=== PATIENT | male | born 1970 | race African-American/Black ===

== ENCOUNTER 2024-05-30 17:27 | Emergency (ER) | payer MEDICAID, OTHER ==
[~2024-05-30] VITALS: Ht 185.4 cm; Wt 81.0 kg
[2024-05-30 17:29] VITALS: TEMP 98.4; O2SAT 100
[2024-05-30] MEDS ORDERED: TETANUS, DIPHTHERIA, PERTUSSIS VAC/PF 0.5ML (>10YR OLD) IM ONE (18:15)
[2024-05-30] MEDS: SODIUM CHLORIDE 0.9% 1,000 ML IV ONE (18:43)
[2024-05-30 19:47] VITALS: BP 129/82; PULSE 58; RESP 15; O2SAT 98
[2024-05-30 20:25] LABS: BASOPHILS % 0.3 % (0.0-2.0); DIFFERENTIAL COMMENT 0; EOSINOPHILS % 3.5 % (0.0-5.0); HEMATOCRIT. 39.1 % (42.0-52.0); HEMOGLOBIN. 12.5 g/dL (14.0-18.0); LYMPHOCYTES % 28.9 % (20.0-50.0); MEAN CORPUSCULAR HEMOGLOBIN 25.3 pg (28.0-32.0); MEAN CORPUSCULAR VOLUME 78.9 fL (80.0-94.0); MONOCYTES % 6.3 % (2.0-8.0); PLATELET 203 x1000/uL (130-400); RED BLOOD CELL COUNT 4.96 mill/uL (4.7-6.1); RED CELL DISTRIBUTION WIDTH 15.6 % (11.6-14.6); WHITE BLOOD COUNT 6.4 x1000/uL (4.5-11.0)
[2024-05-30 20:32] LABS: CHLORIDE 112 mEq/L (98-107); POTASSIUM 3.9 mEq/L (3.5-5.1); SODIUM 144 mEq/L (136-145)
[2024-05-30 20:33] LABS: CALCIUM 9.3 mg/dL (8.7-10.4); CARBON DIOXIDE 24 mEq/L (21-32)
[2024-05-30 20:38] LABS: CREATININE 0.9 mg/dL (0.6-1.3); GLUCOSE 96 mg/dL (70-105); UREA NITROGEN BLOOD 8 mg/dL (9-23)
[2024-05-30 20:39] LABS: ETHANOL BLOOD 197 mg/dL (<10)
[2024-05-30] MEDS: LIDOCAINE HCL/EPINEPHRINE 1%-EPI 1:100,000 20ML VIAL INFIL ONE (21:21)
[2024-05-30] MEDS: IBUPROFEN 400MG TABLET PO ONE (21:21)
== END 2024-05-30 21:24 | disposition home or self-care (01) ==
LOC: ER 17:27
DX: F10.129 Alcohol abuse with intoxication, unspecified (principal); S01.01XA Laceration without foreign body of scalp, initial encounter; S01.81XA Laceration without foreign body of other part of head, initial encounter; I49.9 Cardiac arrhythmia, unspecified; W19.XXXA Unspecified fall, initial encounter; Y93.89 Activity, other specified; Y92.89 Other specified places as the place of occurrence of the external cause; Y99.8 Other external cause status; Y90.6 Blood alcohol level of 120-199 mg/100 ml
CPT/HCPCS: 80048; 80320; 85025; 36415; 70450; 70486; 93005; 12002; 12013; 99284; J3490; J7030; Z7610 ×2; G0480

== ENCOUNTER 2024-06-07 08:58 | Emergency (ER) | payer OTHER ==
[~2024-06-07] VITALS: Ht 185.4 cm; Wt 69.0 kg
[2024-06-07 09:02] VITALS: PULSE 63; O2SAT 100
[2024-06-07 09:09] VITALS: BP 151/82; RESP 14; TEMP 98.6; O2SAT 100
== END 2024-06-07 09:41 | disposition home or self-care (01) ==
LOC: ER 09:12
DX: S01.01XD Laceration without foreign body of scalp, subsequent encounter (principal); X58.XXXD Exposure to other specified factors, subsequent encounter
CPT/HCPCS: 99281